=== PATIENT | female | born 1985 ===

== ENCOUNTER 2023-09-13 19:23 | Emergency (ER) | payer OTHER ==
--- NOTE | 2023-09-13 20:22 | ED ---
Alcohol HPI - General Chief Complaint: Alcohol Stated Complaint: ETOH Time Seen by Provider: 09/13/23 19:43 Source: patient, RN notes reviewed Mode of arrival: ambulatory Limitations: no limitations - History of Present Illness Initial Comments: Quick [id number] female with history of alcohol abuse presenting with alcohol intoxication. States she has been drinking today and she hopes to get into a rehab facility. - Related Data Allergies Allergy/AdvReac Type Severity Reaction Status Date / Time No Known Allergies Allergy Verified 09/13/23 19:44 Review of Systems ROS Statement: Those systems with pertinent positive or pertinent negative responses have been documented in the HPI. ROS Other: All systems not noted in ROS Statement are negative. Past Medical History Past Medical History: No Reported History Additional Past Medical History / Comment(s): OCD History of Any Multi-Drug Resistant Organisms: MRSA Date of last positivie culture/infection: 2013 MDRO Source:: arm Past Surgical History: No Surgical Hx Reported Past Psychological History: ADD/ADHD, Anxiety, Depression, PTSD Smoking Status: Current every day smoker Past Alcohol Use History: Abuse, Daily Past Drug Use History: None Reported General Exam - General Exam Comments Initial Comments: Visual Physical Exam Vital signs reviewed General: Well-appearing, nontoxic, no acute distress. Head: Normocephalic, atraumatic Eyes: PERRLA, EOMI ENT: Airway patent Chest: Nonlabored breathing Skin: No visual rash, normal skin tone Neuro: Alert and oriented 3 Musculoskeletal: No gross abnormalities Limitations: no limitations Course Vital Signs 09/13/23 09/13/23 19:44 21:37 Temperature 98.0 F 99.0 F Pulse Rate 85 108 H Respiratory 16 22 Rate Blood Pressure 124/83 143/103 O2 Sat by Pulse 98 97 Oximetry Medical Decision Making - Medical Decision Making I completed the quick note portion of this chart signed Kat Holt PA-C. Patient left AGAINST MEDICAL ADVICE from facility. - Lab Data Result diagrams: 09/13/23 21:57 09/13/23 21:57 Lab Results 09/13/23 09/13/23 09/13/23 Range/Units 21:42 21:57 21:57 WBC 13.6 H (3.8-10.6) k/uL RBC 5.51 H (3.80-5.40) m/uL Hgb 16.1 H (11.4-16.0) gm/dL Hct 50.0 H (34.0-46.0) % MCV 90.7 (80.0-100.0) fL MCH 29.1 (25.0-35.0) pg MCHC 32.1 (31.0-37.0) g/dL RDW 12.6 (11.5-15.5) % Plt Count 288 (150-450) k/uL MPV 9.0 Neutrophils % 65 % Lymphocytes % 28 % Monocytes % 3 % Eosinophils % 3 % Basophils % 1 % Neutrophils # 8.8 H (1.3-7.7) k/uL Lymphocytes # 3.8 (1.0-4.8) k/uL Monocytes # 0.4 (0-1.0) k/uL Eosinophils # 0.4 (0-0.7) k/uL Basophils # 0.1 (0-0.2) k/uL Sodium 143 (137-145) mmol/L Potassium 5.5 H (3.5-5.1) mmol/L Chloride 109 H (98-107) mmol/L Carbon Dioxide 25 (22-30) mmol/L Anion Gap 9 mmol/L BUN 13 (7-17) mg/dL Creatinine 0.71 (0.52-1.04) mg/dL Est GFR (CKD-EPI)AfAm >90 (>60 ml/min/1.73 sqM) Est GFR (CKD-EPI)NonAf >90 (>60 ml/min/1.73 sqM) Glucose 91 (74-99) mg/dL Calcium 9.5 (8.4-10.2) mg/dL Magnesium 2.0 (1.6-2.3) mg/dL Total Bilirubin 1.0 (0.2-1.3) mg/dL AST 83 H (14-36) U/L ALT 107 H (4-34) U/L Alkaline Phosphatase 70 (38-126) U/L Total Protein 8.4 H (6.3-8.2) g/dL Albumin 5.0 (3.5-5.0) g/dL Lipase 273 (23-300) U/L Influenza Type A (PCR) Not Detected (Not Detectd) Influenza Type B (PCR) Not Detected (Not Detectd) RSV (PCR) Not Detected (Not Detectd) SARS-CoV-2 (PCR) Not Detected (Not Detectd) Disposition Clinical Impression: Alcohol use disorder Disposition: LEFT AGAINST MEDICAL ADVICE Referrals: None,Stated [Primary Care Provider] - 1-2 days
[2023-09-13 22:03] LABS: Basophils # (A) 0.1 k/uL (0-0.2); Basophils % (A) 1 %; Eosinophils # (A) 0.4 k/uL (0-0.7); Eosinophils % (A) 3 %; HGB 16.1 gm/dL (11.4-16.0); Lymphocytes # (A) 3.8 k/uL (1.0-4.8); Lymphocytes % (A) 28 %; MCH 29.1 pg (25.0-35.0); MCHC 32.1 g/dL (31.0-37.0); MCV 90.7 fL (80.0-100.0); Monocytes # (A) 0.4 k/uL (0-1.0); Monocytes % (A) 3 %; Neutrophils # (A) 8.8 k/uL (1.3-7.7); Neutrophils % (A) 65 %; Platelet Count 288 k/uL (150-450); RBC 5.51 m/uL (3.80-5.40); RDW 12.6 % (11.5-15.5); WBC 13.6 k/uL (3.8-10.6)
[2023-09-13 22:07] VITALS: BP 143/103; PULSE 108; RESP 22; TEMP 99
[2023-09-13] MEDS: LORazepam 1 MG TAB PO STA (22:08)
[2023-09-13 22:12] LABS: ALT 107 U/L (4-34); African American GFR (CKD) >90 (>60 ml/min/1.73 sqM); Anion Gap 9 mmol/L; Blood Urea Nitrogen 13 mg/dL (7-17); Calcium 9.5 mg/dL (8.4-10.2); Carbon Dioxide 25 mmol/L (22-30); Chloride 109 mmol/L (98-107); Glucose 91 mg/dL (74-99); Lipase 273 U/L (23-300); Non-African American GFR(CKD) >90 (>60 ml/min/1.73 sqM); Sodium 143 mmol/L (137-145)
[2023-09-13 22:23] LABS: AST 83 U/L (14-36); Alkaline Phosphatase 70 U/L (38-126); Potassium 5.5 mmol/L (3.5-5.1); Total Protein 8.4 g/dL (6.3-8.2)
== END 2023-09-13 23:00 | disposition left against medical advice (07) ==
LOC: EC 19:23
DX: F10.129 Alcohol abuse with intoxication, unspecified (principal); F17.200 Nicotine dependence, unspecified, uncomplicated; Z11.52 Encounter for screening for COVID-19; Z53.29 Procedure and treatment not carried out because of patient's decision for other reasons
CPT/HCPCS: 36415; 80053; 83690; 83735; 85025; 87636; 99284